=== PATIENT | female | born 1945 | race Caucasian/White ===

== ENCOUNTER 2016-06-08 18:04 | Inpatient (IN) | payer MEDICARE ==
[~2016-06-08] VITALS: Ht 165.1 cm; Wt 68.0 kg
[~2016-06-08 18:04] MED LIST: HYDROCHLOROTH12.5 M1 PO; NEURONTIN 300300 MG PO; PLAVIX75 MG PO; PRINIVIL20 MG PO
[2016-06-08 19:04] LABS: BASOPHILS 0.2 % (0.0-2.0); EOSINOPHILS 0.3 % (0-7); HEMATOCRIT 35.3 % (36.0-48.0); HEMOGLOBIN 12.1 g/dL (12-16); IMMATURE GRANULOCYTES 0.2 % (0-5); LYMPHOCYTES 16.5 % (15-50); MCH 32.6 pg (26.0-34.0); MCHC 34.3 g/dL (31.0-37.0); MCV 95.1 fL (80.0-100.0); MEAN PLATELET VOLUME 10.6 fL (7.4-10.4); MONOCYTES 8.4 % (2-11); NEUTROPHILS 74.4 % (40-80); PLATELET COUNT 221 10x3/uL (130-400); RBC 3.71 10x6/uL (4.00-5.40); RDW 14.1 % (11.5-14.5); WBC 11.1 10x3/uL (4.8-10.8)
--- NOTE | 2016-06-08 19:07 | NUR ---
PATIENT GIVEN GOWN AND ASKED TO CHANGE FROM STREET [facility]. DR. FINK GIVEN INFORMATION THAT I HAD. HE REQUESTS CALL BACK WITH LAB RESULTS AND ANY NEEDS THAT ARE IDENTIFIED IN THE MEAN TIME. REPORTED THIS TO YVETTE.
[2016-06-08 19:41] LABS: ALBUMIN 1.9 g/dL (3.4-5.0); CARBON DIOXIDE 15.2 mmol/L (21.0-32.0); PROTEIN - SERUM 3.3 g/dL (6.4-8.2); THYROID STIMULATING HORMONE 0.51 uIU/mL (0.36-3.74)
[2016-06-08 19:57] LABS: ANION GAP 20.6 mmol/L (8-16); BILIRUBIN - TOTAL 0.21 mg/dL (0.2-1.3); CALCIUM 9.6 mg/dL (8.5-10.1); CREATININE - SERUM 3.1 mg/dL (0.6-1.3); POTASSIUM - SERUM 3.8 mmol/L (3.5-5.1)
--- NOTE | 2016-06-08 21:06 | NUR ---
PT AWAKE, ALERT, ORIENTED, ASKING FOR SOMETHING TO EAT AND DRINK. DENIES ANY ACUTE NEEDS. PT IS A DIRECT ADMIT FROM DR. GALLARDO'S OFFICE. WILL MONITOR CLOSELY.
[2016-06-09] VITALS (7 sets, daily range): BP systolic 90–119; BP diastolic 36–49; Ht 165.1 cm; Wt 68.0 kg
--- NOTE | 2016-06-09 06:42 | NUR ---
PT LYING IN BED, EYES CLOSED, RESPIRATIONS EVEN AND UNLABORED, EASILY ROUSABLE TO VERBAL STIMULI. CONTINUE TO MONITOR CLOSELY.
--- NOTE | 2016-06-09 07:27 | NUR ---
PT SITTING UP IN BED EASY TO ARROUSE DENIES NEEDS WILL CONTINUE TO MONITOR.
--- NOTE | 2016-06-09 07:38 | NUR ---
WAITING ON PHARM TO BRING UP MEDS.
[2016-06-09 08:58] LABS: APPEARANCE CLOUDY (CLEAR); BACTERIA MANY /hpf (NONE SEEN); BILIRUBIN NEGATIVE (NEGATIVE); COLOR YELLOW (YELLOW); EPITHELIAL CELLS 0-5 /hpf (0-5); GLUCOSE NEGATIVE (NEGATIVE); KETONE NEGATIVE (NEGATIVE); LEUKOCYTE ESTERASE 1+ (NEGATIVE); MUCUS <1+ /lpf (NONE SEEN); NITRITE NEGATIVE (NEGATIVE); PROTEIN NEGATIVE (NEGATIVE); RED CELLS - URINE OCC /hpf (0-5); SPECIFIC GRAVITY 1.015 (1.005-1.020); UROBILINOGEN NORMAL (NORMAL)
[2016-06-09 09:38] LABS: ERYTHROCYTE SEDIMENTATION RATE 88 mm/hr (0-30)
[2016-06-09 11:27] LABS: BASOPHILS 0.2 % (0.0-2.0); EOSINOPHILS 0.4 % (0-7); HEMATOCRIT 32.8 % (36.0-48.0); HEMOGLOBIN 10.9 g/dL (12-16); IMMATURE GRANULOCYTES 0.3 % (0-5); LYMPHOCYTES 19.8 % (15-50); MCH 31.4 pg (26.0-34.0); MCHC 33.2 g/dL (31.0-37.0); MCV 94.5 fL (80.0-100.0); MEAN PLATELET VOLUME 10.8 fL (7.4-10.4); MONOCYTES 8.4 % (2-11); NEUTROPHILS 70.9 % (40-80); PLATELET COUNT 232 10x3/uL (130-400); RBC 3.47 10x6/uL (4.00-5.40); RDW 14.1 % (11.5-14.5)
[2016-06-09 11:32] LABS: ANION GAP 18.2 mmol/L (8-16); CALCIUM 9.3 mg/dL (8.5-10.1); CARBON DIOXIDE 15.3 mmol/L (21.0-32.0); CREATININE - SERUM 2.9 mg/dL (0.6-1.3); POTASSIUM - SERUM 3.5 mmol/L (3.5-5.1)
--- NOTE | 2016-06-09 15:47 | NUR ---
PT IS SITTING UP IN BED HAS BEEN COMPLAINING OF SORE THROAT TODAY. WILL ASK JANE WESLEY FOR SOMETHING FOR PT ONCE SHE IS FREE. PT DENIES OTHER NEEDS AT THIS TIME. WILL CONTINUE TO MONITOR.
--- NOTE | 2016-06-09 19:32 | NUR ---
RECEIVED REPORT, RFA-SODIUM BICARB @75, BED IS LOW,SRX2, CALL LIGHT IN REACH
[2016-06-10] VITALS: BP 93/43
--- NOTE | 2016-06-10 00:27 | NUR ---
ENGINEERING FACULTY AT BEDSIDE TO OBTAIN VITALS, CALL LIGHT IN REACH. WILL CONTINUE WITH PLAN OF CARE.
[2016-06-10 04:00] VITALS: BP 96/43
[2016-06-10 06:14] LABS: BASOPHILS 0.1 % (0.0-2.0); EOSINOPHILS 0.3 % (0-7); HEMOGLOBIN 9.6 g/dL (12-16); IMMATURE GRANULOCYTES 0.3 % (0-5); LYMPHOCYTES 23.5 % (15-50); MCH 31.4 pg (26.0-34.0); MCHC 34.3 g/dL (31.0-37.0); MEAN PLATELET VOLUME 10.3 fL (7.4-10.4); MONOCYTES 10.2 % (2-11); NEUTROPHILS 65.6 % (40-80); PLATELET COUNT 215 10x3/uL (130-400); RBC 3.06 10x6/uL (4.00-5.40); RDW 13.6 % (11.5-14.5)
[2016-06-10 06:28] LABS: MCV 91.5 fL (80.0-100.0); WBC 7.3 10x3/uL (4.8-10.8)
[2016-06-10 06:32] LABS: CALCIUM 7.8 mg/dL (8.5-10.1)
[2016-06-10 06:45] LABS: ANION GAP 16.5 mmol/L (8-16); CARBON DIOXIDE 21.5 mmol/L (21.0-32.0)
--- NOTE | 2016-06-10 07:08 | NUR ---
PT SITTING UP IN BED DENIES NEEDS AT THIS TIME WILL CONTINUE TO MONITOR.
[2016-06-10 07:20] LABS: HEPATITIS C ANTIBODY <0.1 (0.0-0.9)
[2016-06-10 08:05] VITALS: BP 82/37
[2016-06-10 11:13] LABS: ANA REFLEX - DIRECT Negative (Negative)
[2016-06-10 12:19] VITALS: BP 94/58
[2016-06-10 15:39] VITALS: BP 105/47
[2016-06-10 18:08] LABS: SPE - A/G RATIO 0.8 (0.7-1.7); SPE - ALBUMIN 2.8 g/dL (2.9-4.4); SPE - ALPHA-1 GLOBULIN 0.4 g/dL (0.0-0.4); SPE - ALPHA-2 GLOBULIN 1.3 g/dL (0.4-1.0); SPE - BETA GLOBULIN 0.8 g/dL (0.7-1.3); SPE - GAMMA GLOBULIN 0.9 g/dL (0.4-1.8); SPE - M-SPIKE 0.3 g/dL (Not Observed); SPE - TOTAL PROTEIN 6.2 g/dL (6.0-8.5)
[2016-06-10 19:09] LABS: UPE RAND - ALBUMIN 22.1 % (()); UPE RAND - ALPHA 1 GLOBULIN 7.5 % (()); UPE RAND - ALPHA 2 GLOBULIN 19.4 % (()); UPE RAND - BETA GLOBULIN 36.4 % (()); UPE RAND - GAMMA GLOBULIN 14.6 % (())
--- NOTE | 2016-06-10 19:55 | NUR ---
RECEIVED REPORT, RFA-SODIUM BICARB @75, O2-2L,CALL LIGHT IN REACH, BED LOW, SRX2, DENIES ANY NEEDS
[2016-06-10 20:00] VITALS: BP 116/51
[2016-06-11] VITALS: BP 118/51; BP 173/77
--- NOTE | 2016-06-11 00:33 | NUR ---
SLEEPING, BED IS LOW, SRX2. BED ALARM IS ON, CALL LIGHT IN REACH
--- NOTE | 2016-06-11 01:12 | NUR ---
PT RESTING SOUNDLY WITHOUT C/O OR DISTRESS NOTED. CALL LIGHT IS WITHIN REACH. NO NEEDS VOICED. WILL MONITOR.
[2016-06-11 06:52] LABS: BASOPHILS 0 % (0.0-2.0); EOSINOPHILS 0 % (0-7); HEMATOCRIT 25.8 % (36.0-48.0); HEMOGLOBIN 8.9 g/dL (12-16); IMMATURE GRANULOCYTES 0.1 % (0-5); MCH 31.4 pg (26.0-34.0); MCHC 34.5 g/dL (31.0-37.0); MCV 91.2 fL (80.0-100.0); MEAN PLATELET VOLUME 10.4 fL (7.4-10.4); MONOCYTES 2.7 % (2-11); NEUTROPHILS 86.2 % (40-80); PLATELET COUNT 239 10x3/uL (130-400); RBC 2.83 10x6/uL (4.00-5.40); RDW 13.5 % (11.5-14.5)
--- NOTE | 2016-06-11 06:52 | NUR ---
RECEIVED REPORT FROM TERMINAL CLERK NURSE, MIKHAIL ESTRADA. PT IN BED AT THIS TIME, REQUESTED A CUP OF ICE WATER, WILL PROVIDED PT WITH ICE WATER. PT DENIES ANY OTHER NEEDS AT THIS TIME. ASSESSMENT COMPLETED AT THIS TIME. NAD NOTED, CALL LIGHT IN REACH, WILL CONTINUE TO MONITOR.
[2016-06-11 07:16] LABS: ANION GAP 13.1 mmol/L (8-16); CALCIUM 8.2 mg/dL (8.5-10.1); CARBON DIOXIDE 27.7 mmol/L (21.0-32.0); CREATININE - SERUM 1.7 mg/dL (0.6-1.3); POTASSIUM - SERUM 2.8 mmol/L (3.5-5.1)
[2016-06-11 07:34] VITALS: BP 122/61
--- NOTE | 2016-06-11 08:15 | NUR ---
AMANDA VACA RENAL PROCESSOR HELPER NOTIFIED OF CRITICAL K OF 2.9.
--- NOTE | 2016-06-11 08:49 | NUR ---
ADMINISTERED MORNING MEDICATIONS, PT IN BED, REQUESTED FOR ME TO CALL FAMILY MEMBER AND TRANSFER CALL TO HER ROOM. PT DENIES ANY NEEDS AT THIS TIME. CALL LIGHT IN REACH, NAD NOTED, WILL CONTINUE TO MONITOR.
[2016-06-11 11:51] LABS: % SATURATION 15 % (15-55); IRON 18 ug/dl (35-150); TOTAL IRON BIND CAPACITY 119 ug/dl (260-445); UNSAT IRON BIND CAPACITY 101 ug/dl (150-375)
[2016-06-11 12:13] VITALS: BP 123/54
[2016-06-11 14:12] LABS: ANION GAP 13.8 mmol/L (8-16); CALCIUM 8.1 mg/dL (8.5-10.1); CARBON DIOXIDE 27.5 mmol/L (21.0-32.0); CREATININE - SERUM 1.8 mg/dL (0.6-1.3)
[2016-06-11 14:17] LABS: POTASSIUM - SERUM 3.3 mmol/L (3.5-5.1)
[2016-06-11 14:56] LABS: HEMOGLOBIN A1C 7.5 % (4.8-6.0)
[2016-06-11 16:19] VITALS: BP 139/56
--- NOTE | 2016-06-11 19:42 | NUR ---
RECEIVED REPORT, PT IS A&O, UP WITH ASSIST, 02-2L, IV-RFA-SL, REFUSING TO WEAR SCD, CALL LIGHT IN REACH, BED IS LOW, SRX2, BED ALARM IS OM
[2016-06-11 20:49] VITALS: BP 126/57
--- NOTE | 2016-06-12 00:13 | NUR ---
PT RESTING WITH EYES CLOSED. RESP EVEN AND REGULAR. SR UP X2, CALL LIGHT WITHIN REACH.
[2016-06-12 00:36] VITALS: BP 136/62
[2016-06-12 04:39] VITALS: BP 136/74
[2016-06-12 06:51] LABS: BASOPHILS 0.1 % (0.0-2.0); EOSINOPHILS 0 % (0-7); HEMATOCRIT 26.1 % (36.0-48.0); HEMOGLOBIN 8.7 g/dL (12-16); IMMATURE GRANULOCYTES 0.9 % (0-5); LYMPHOCYTES 9.1 % (15-50); MCH 31.2 pg (26.0-34.0); MCHC 33.3 g/dL (31.0-37.0); MEAN PLATELET VOLUME 10.2 fL (7.4-10.4); MONOCYTES 6.5 % (2-11); NEUTROPHILS 83.4 % (40-80); PLATELET COUNT 282 10x3/uL (130-400); RBC 2.79 10x6/uL (4.00-5.40); RDW 13.9 % (11.5-14.5)
--- NOTE | 2016-06-12 06:55 | NUR ---
RECEIVED REPORT FROM FOUR SLIDE MACHINE OPERATOR NURSE, MIKHAIL. PT IN BED, REQUESTED A CUP OF ICE WATER. WILL PROVIDED PT WITH A CUP OF ICE WATER. PT DENIES ANY OTHER NEEDS AT THIS TIME. CALL LIGHT IN REACH, NAD NOTED, WILL CONTINUE TO MONITOR.
[2016-06-12 06:59] LABS: MCV 93.5 fL (80.0-100.0)
[2016-06-12 07:03] LABS: ANION GAP 12.3 mmol/L (8-16); CARBON DIOXIDE 27.6 mmol/L (21.0-32.0); CREATININE - SERUM 1.4 mg/dL (0.6-1.3)
[2016-06-12 07:04] LABS: POTASSIUM - SERUM 3.9 mmol/L (3.5-5.1)
[2016-06-12 09:31] VITALS: BP 119/59
--- NOTE | 2016-06-12 09:41 | NUR ---
ADMINISTERED MORNING MEDICATIONS, PT IN BED, DENIES ANY NEEDS AT THIS TIME. CALL LIGHT IN REACH, NAD NOTED, WILL CONTINUE TO MONITOR.
--- NOTE | 2016-06-12 10:14 | NUR ---
PT AMBULATING AROUND THE UNIT WITH PHYSICAL THERAPY, PT DID WELL, NAD NOTED.
--- NOTE | 2016-06-12 11:37 | NUR ---
ADMINISTERED 6 UNIT OF HUMALOG FOR BLOOD SUGAR OF 285, PER SLIDING SCALE. PT IN BED, DENIES ANY NEEDS AT THIS TIME. CALL LIGHT IN REACH, NAD NOTED, WILL CONTINUE TO MONITOR.
[2016-06-12 12:55] VITALS: BP 144/46
--- NOTE | 2016-06-12 16:03 | NUR ---
CALLED PHARMACY AND SPOKE WITH ABDELRAHMAN AND INFORMED HER THAT I NEED THE IRON FOR PT. SHE STATED THAT THEY WOULD BRING IT UP SOON.
[2016-06-12 16:59] VITALS: BP 93/68
--- NOTE | 2016-06-12 17:50 | NUR ---
RIGHT FA IV, LEAKING. IV D/C TIP INTACT. NEW IV STARTED TO LEFT FA, TWO STICKS. PT TOLERATED PROCEDURE WELL, RESTARTED FERRLECIT IVPB. PT DENIES ANY NEEDS AT THIS TIME. CALL LIGHT IN REACH, NAD NOTED, WILL CONTINUE TO MONITOR.
[2016-06-12 21:36] VITALS: BP 152/59
--- NOTE | 2016-06-12 21:53 | NUR ---
PT AWAKE, ALERT, ORIENTED, DENIES ANY NEEDS. PT IS CONCERNED ABOUT HER FSBS BEING ELEVATED. WE DISCUSSED POSSIBLE CAUSES, AND SHE IS HOPEFUL THAT ONCE SHE IS ABLE TO STOP THE STEROIDS, IT WILL BECOME NORMAL AGAIN. PT STATES SHE IS FEELING BETTER, AND HAS TO BE D/C BY TOMORROW SHE HAS TO TAKE HER PARTNER TO HIS CHEMO APPT ON MONDAY MORNING. CONTINUE TO MONITOR CLOSELY.
--- NOTE | 2016-06-13 02:06 | NUR ---
PT LYING IN BED, EYES CLOSED, RESPIRATIONS EVEN AND UNLABORED. CONTINUE TO MONITOR CLOSELY.
[2016-06-13 02:34] VITALS: BP 138/66
[2016-06-13 04:44] VITALS: BP 137/69
[2016-06-13 06:59] LABS: BASOPHILS 0.1 % (0.0-2.0); EOSINOPHILS 0.1 % (0-7); HEMATOCRIT 27.7 % (36.0-48.0); HEMOGLOBIN 9.4 g/dL (12-16); IMMATURE GRANULOCYTES 1.4 % (0-5); LYMPHOCYTES 18.3 % (15-50); MCH 32.3 pg (26.0-34.0); MCHC 33.9 g/dL (31.0-37.0); MCV 95.2 fL (80.0-100.0); MEAN PLATELET VOLUME 9.9 fL (7.4-10.4); MONOCYTES 8.6 % (2-11); NEUTROPHILS 71.5 % (40-80); RBC 2.91 10x6/uL (4.00-5.40); RDW 14.1 % (11.5-14.5); WBC 14.7 10x3/uL (4.8-10.8)
[2016-06-13 07:05] LABS: PLATELET COUNT 363 10x3/uL (130-400)
[2016-06-13 07:12] LABS: ANION GAP 14.9 mmol/L (8-16); CALCIUM 8.9 mg/dL (8.5-10.1); CARBON DIOXIDE 24.5 mmol/L (21.0-32.0); CREATININE - SERUM 1.4 mg/dL (0.6-1.3); POTASSIUM - SERUM 4.4 mmol/L (3.5-5.1)
--- NOTE | 2016-06-13 07:15 | NUR ---
RECIEVED REPORT ON PATIENT, PATIENT IS ALERT AND ORIENTED AT THIS TIME. PATIENT HAS A L FA IV WITH NS INFUSING AT 10 ML/HR AT THIS TIME. PATIENT IS ON ROOM AIR WITH NAD NOTED AT THIS TIME. CHEST RISES AND FALLS EQUALLY, NO SOB NOTED. PATIENT DENIES ANY NEEDS OR COMPLAINTS AT THIS TIME, STATES SHE IS SUPPOSE TO BE GOING HOME TODAY, WILL TALK WITH DR. MACDONALD LOW AND LOCKED. CALLL LIGHT IN REACH. CPOC
[2016-06-13 08:00] VITALS: BP 141/94
[2016-06-13 11:08] VITALS: BP 150/64
[2016-06-13] MEDS ORDERED: MUCINEX600 MG PO (11:13)
[2016-06-13] MEDS ORDERED: MEDROL DOSE PACK4 MG PO (11:13)
[2016-06-13] MEDS ORDERED: OMNICEF300 MG PO (11:14)
--- NOTE | 2016-06-13 13:08 | NUR ---
Patient Name: JACIEL BURT Admission Status: Elective Accout number: [id number] Admission Date: 06-09-2016 : 1945 Admission Diagnosis:ACUTE KIDNEY FAILURE, UNSPECIFIED Attending: THEO Current LOS: 4 Anticipated DC Date: 06-13-2016 Planned Disposition: Home Primary Insurance: MEDICARE A & B Discharge Planning Comments: * Is the patient Alert and Oriented? Yes 0 * How many steps to enter\exit or inside your home? 1 0 * PCP DR. GALLARDO 0 * Pharmacy [facility] 0 * Preadmission Environment Home with Family 0 * ADLs Independent 0 * Equipment None 0 * Other Equipment NO MEDICAL EQUIPMENT PROVIDER PREFERENCE 0 * List name and contact numbers for known caregivers / representatives who currently or will assist patient after discharge: ORLY JIMENES, LIFE PARTNER, 0 * Community resources currently utilized None 0 * Please name any agencies selected above. NONE 0 * Additional services required to return to the preadmission environment? No 0 * Can the patient safely return to the preadmission environment? Yes 0 * Has this patient been hospitalized within the prior 30 days at any hospital? No 0 CM MET WITH PT IN ROOM TO DISCUSS DISCHARGE PLANNING AND NEEDS. PT REPORTS LIVING AT HOME INDEPENDENTLY WITH HER LIFE PARTNER. PT HAS NO MEDICAL EQUIPMENT AND NO OUTSIDE SERVICES ASSISTING IN THE HOME. CM DISCUSSED AVAILABILITY OF HOME HEALTH, REHAB SERVICES AND MEDICAL EQUIPMENT. PT DENIES DISCHARGE NEEDS, REPORTS HER SLIFE PARTNER WILL PICK HER UP FOR DISCHARGE HOME AT ABOUT 2PM TODAY. IMPORTANT MESSAGE FROM MEDICARE PROVIDED AND EXPLAINED. Sausage Canner: Harrison Tolbert
--- NOTE | 2016-06-13 13:33 | NUR ---
RETURNED TO RESUME CARE, PATIENT IS SITTING UP IN BED WAITING ON RIDE TO GET HERE FOR DC. DENIES ANY NEEDS. CPOC
--- NOTE | 2016-06-13 14:06 | NUR ---
Nutrition Education: RN contacted RD regarding DM education. Provided pt with written DM information and reviewed DM diet. Pt reported that her appetite has been very decreased and she has been under stress lately. RD encouraged pt to follow ADA diet guidelines. RD name and phone number provided to pt. Pt encouraged to contact RD with any questions/concerns. Thank you for the consult. RD following.
--- NOTE | 2016-06-13 14:10 | NUR ---
PATIENT IV DC WITH CATH TIP INTACT. PATIENT GIVEN DC INSTRUCTIONS. PATIENT DENIES ANY QUESTIONS. PRESCRIPTIONS GIVEN. RIDE HERE. PATIENT READY FOR DC.
[2016-06-14 12:11] LABS: ANTI-GLOMERULAR BASMENT MEMBRN 3 units (0-20)
[2016-06-14 16:11] LABS: ANCA - ANTIMYELOPEROXIDASE <9.0 U/mL (0.0-9.0); ANCA - ANTIPROTEINASE 3 <3.5 U/mL (0.0-3.5); ANCA - ATYPICAL <1:20 titer (Neg:<1:20); ANCA - CYTOPLASMIC <1:20 titer (Neg:<1:20); ANCA - PERINUCLEAR <1:20 titer (Neg:<1:20)
[2016-06-15 14:21] LABS: FOLATE (FOLIC ACID) - SERUM 11.7 ng/mL (>3.0)
--- NOTE | 2016-08-15 12:39 | DS ---
PATIENT:JACIEL BURT :43 MEDICAL RECORD: [id number] DISCHARGE SUMMARY ADMISSION DATE: 06/09/16 DISCHARGE DATE: 06/13/16 DATE OF ADMISSION: 06/08/2016 DATE OF DISCHARGE: 06/13/2016 DISCHARGE DIAGNOSES: 1. Acute kidney injury on top of chronic kidney disease. 2. Coronary artery disease. 3. Hypertension. 4. Arthritis. 5. Severe hypoalbuminemia. 6. Metabolic acidosis. CONSULTS: Corky Btaista MD HOSPITAL COURSE: Full H&P is listed elsewhere on the chart for this 71-year-old female patient, who was admitted with olbqj-jr-suntxhr kidney injury and metabolic acidosis. The patient was noted to have UTI and it did grow out E. coli. The patient was on Rocephin. The patient was quite acidotic and had renal insufficiency. Nephrology was on board, IV fluids with D5 and sodium bicarbonate for the acidosis. This did correct. The patient did require some adjustments in sliding scale due to some hyperglycemia from the IV fluids and steroids. The patient's SRI inhibitor was held. It was thought that the patient did have some dehydration. There was a contributing factor to the acute renal failure along with SRI inhibitor. The patient was advised to hold SRI inhibitor as well as stop all NSAIDS. The patient responded well to the medical therapy along with the antibiotic care and antibiotics were deescalated. The patient was noted not to have any proteinuria on workup, even though the albumin was 1.9. The patient required some correction of potassium during hospitalization. But CASI did resolve. Creatinine did return to baseline at 1.4-1.6. The patient ambulated in the ewing. Nephrology signed off. The patient was thought to be stable for discharge to home to follow up in the outpatient setting. See med rec. TRANSINT:[id number] Voice Confirmation ID: [id number] DOCUMENT ID: [id number] Dictated By: AGUEDA LUZ I have interviewed/examined the above patient and agree with these documented findings. SANGEETA ROCHA MD at 0844 at 1238 CC: [id number] DICTATION DATE: 08/10/16 0836 CHEESEMAKER HELPER: 08/10/16 2343 DIS IN 06/13/16 [facility] [address] [place] [address]
== END 2016-06-13 14:38 | disposition home or self-care (01) | DRG 683 ==
LOC: OBSVTIME 18:04 → D.M2 18:04
PROVIDERS: Family Medicine; Internal Medicine Nephrology; ADMIT Family Medicine
DX: N17.9 Acute kidney failure, unspecified (principal); F17.203 Nicotine dependence unspecified, with withdrawal; I12.9 Hypertensive chronic kidney disease with stage 1 through stage 4 chronic kidney disease, or unspecified chronic kidney disease; N18.9 Chronic kidney disease, unspecified; G62.9 Polyneuropathy, unspecified; E87.6 Hypokalemia; I25.10 Atherosclerotic heart disease of native coronary artery without angina pectoris; E88.09 Other disorders of plasma-protein metabolism, not elsewhere classified; R63.0 Anorexia; Z68.25 Body mass index [BMI] 25.0-25.9, adult; N30.90 Cystitis, unspecified without hematuria; E11.22 Type 2 diabetes mellitus with diabetic chronic kidney disease; E11.65 Type 2 diabetes mellitus with hyperglycemia; B96.20 Unspecified Escherichia coli [E. coli] as the cause of diseases classified elsewhere; E86.0 Dehydration; D64.9 Anemia, unspecified; Z95.5 Presence of coronary angioplasty implant and graft; Z86.73 Personal history of transient ischemic attack (TIA), and cerebral infarction without residual deficits

== ENCOUNTER → 2016-08-19 13:47 | Outpatient (CLI) | payer MEDICARE ==
[2016-06-09 12:58] VITALS: BMI 24.9
[~2016-08-19 13:47] MED LIST changes: +MEDROL DOSE PACK4 MG PO; +MUCINEX600 MG PO; +OMNICEF300 MG PO
== END | disposition home or self-care (01) ==
LOC: D.MRI 13:47
DX: G62.9 Polyneuropathy, unspecified (principal)

== ENCOUNTER → 2017-06-21 09:59 | Outpatient (CLI) | payer MEDICARE ==
[2016-06-09 12:58] VITALS: BMI 24.9
--- NOTE | ~2017-06-21 | EC ---
PATIENT:JACIEL BURT DATE OF SERVICE: 06/21/17 SEX: F MEDICAL RECORD: [id number] DATE OF : [birth year] LOCATION:[facility] AGE OF PATIENT: 72 ADMISSION DATE: 06/21/17 REFERRING PHYSICIAN: INTERPRETING PHYSICIAN: KATHYA CASTELLANOS MD ECHOCARDIOGRAM REPORT ECHO CHARGES 4 ECHO COMPLETE CLINICAL DIAGNOSIS: UNCONTROLLED HTN ECHOCARDIOGRAPHIC MEASUREMENTS (adult normal given) AC root (d.<3.7cm) 2.9 cm LV Septum d (<1.2 cm> 1.3 cm Valve Excursion 1.8 cm LV Septum (systole) 1.8 cm Left Atria (s.<4.0cm> 3.6 cm LVPW d(<1.2cm) 1.2 cm RV (d.<2.3cm) 2.5 cm LVPW (sytole) 1.9 cm LV diastole(<5.6CM) 4.5 cm MV E-F(>70mm/sec) cm LV systole 2.6 cm LVOT Diameter 1.9 cm MV exc.(>10mm) cm Est.ejection fraction (50-75%) % Pericardial Effusion N DOPPLER: LVIT cm/sec A 76.0 cm/sec E 101 cm/sec LA cm/sec RVSP 24.0 mmHg LVOT 75.0 cm/sec AOP1/2T m/s Asc. Ao 122 cm/sec RVOT 52.0 cm/sec RA cm/sec PA 76.0 cm/sec AV Gradient Peak 6.0 mmHg AV Mean 3.3 mmHg AV Area 1.3 cm MV Gradient Peak 4.7 mmHg MV Mean 1.8 mmHg MV Area cm COMMENTS: Health And Wellness Advisor: Glo MCMANUSOE Early Years Teacher: 1 Dr. Castellanos TAPE# PACS DATE OF SERVICE: 06/21/2017 Echocardiogram FINDINGS: 1. Left ventricular chamber size is within normal limits. Left ventricular systolic function is normal. Overall ejection fraction estimated at 55%. 2. Left atrium, right atrium, and right ventricular chamber sizes are within normal limits. 3. Valvular structures have normal structure and motion. ECHOCARDIOGRAM REPORT [id number] JACIEL BURT 4. Doppler interrogation reveals mild mitral regurgitation, mild tricuspid regurgitation, no other valvular insufficiency or stenosis. 5. No evidence of pericardial effusion or left ventricular thrombus. TRANSINT:[id number] Voice Confirmation ID: [id number] DOCUMENT ID: [id number] KATHYA CASTELLANOS MD at 1323 CC: [id number] DICTATION DATE: 06/22/1734 DIRECTOR OF TEENAGE ACTIVITIES: 06/22/17 1213 DEP CLI 06/21/17 [place] [id number] [place] [id number]
== END | disposition home or self-care (01) ==
LOC: D.ECHO 09:59
DX: I10 Essential (primary) hypertension (principal)

== ENCOUNTER → 2017-11-13 08:27 | Outpatient (CLI) | payer MEDICARE ==
[2016-06-09 12:58] VITALS: BMI 24.9
== END | disposition home or self-care (01) ==
LOC: D.CT 08:27
DX: G43.909 Migraine, unspecified, not intractable, without status migrainosus (principal)

== ENCOUNTER 2020-10-07 09:39 | Observation (INO) | payer MEDICARE ==
[2020-10-07] VITALS (11 sets, daily range): BP systolic 136–166; BP diastolic 57–70; Ht 165.1 cm; Wt 63.6 kg
[~2020-10-07] VITALS: Ht 165.1 cm; Wt 63.6 kg
[2020-10-07 10:11] LABS: APTT 26.1 SECONDS (22.8-39.4); CALC OSMOLALITY 289 mosm/kg (275-300); CALCIUM 9.1 mg/dL (8.5-10.1); CARBON DIOXIDE 22.6 mmol/L (21.0-32.0); CHLORIDE - SERUM 103 mmol/L (98-107); CREATININE - SERUM 1.5 mg/dL (0.6-1.3); INR 1.16 (0.85-1.17); POTASSIUM - SERUM 3.7 mmol/L (3.5-5.1); PROTIME 13.7 SECONDS (11.6-15.0); SODIUM 137 mmol/L (136-145); UREA NITROGEN 20 mg/dL (7-18); eGFR NON AFRICAN AMERICAN 36 mL/min (90-120)
[2020-10-07 10:12] LABS: GLUCOSE 338 mg/dL (74-106)
[2020-10-07 10:14] LABS: BASOPHILS 0.3 % (0-2); EOSINOPHILS 3.3 % (0-7); HEMATOCRIT 35.5 % (36.0-48.0); HEMOGLOBIN 12.1 g/dL (12-16); IMMATURE GRANULOCYTES 0.2 % (0-5); LYMPHOCYTE ABS# 2.26 10x3/uL (1.18-3.74); LYMPHOCYTES 24.9 % (15-50); MCH 32.5 pg (26.0-34.0); MCHC 34.1 g/dL (31.0-37.0); MCV 95.4 fL (80.0-100.0); MEAN PLATELET VOLUME 10.1 fL (7.4-10.4); MONOCYTES 9.4 % (2-11); NEUTROPHILS 61.9 % (40-80); PLATELET COUNT 287 10x3/uL (130-400); RBC 3.72 10x6/uL (4.00-5.40); RDW 13.7 % (11.5-14.5); WBC 9.1 10x3/uL (4.8-10.8)
[2020-10-07 10:28] LABS: ALBUMIN 3.1 g/dL (3.4-5.0); ALKALINE PHOSPHATASE 120 U/L (30-120); ALT (SGPT) 48 U/L (10-68); BILIRUBIN - TOTAL 0.38 mg/dL (0.2-1.3); CKMB 0.4 U/L (0.0-3.6); CREATINE KINASE 42 UL (21-215); MAGNESIUM - SERUM 1.8 mg/dL (1.8-2.4); PROTEIN - SERUM 6.8 g/dL (6.4-8.2); THYROID STIMULATING HORMONE 1.13 uIU/mL (0.36-3.74)
[2020-10-07 10:29] LABS: TROPONIN-I < 0.017 ng/mL (0.000-0.060)
--- NOTE | 2020-10-07 16:10 | NUR ---
ARRIVES TO UNIT PER W/C, CONT TO MONITOR FOR WEAKNESS
[2020-10-07] MEDS ORDERED: AMBIEN CR 6.26.25 MG (18:17)
[2020-10-07] MEDS ORDERED: VERELAN180 MG (18:18)
[2020-10-07] MEDS ORDERED: GLIMEPIRIDE1 MG PO (18:18)
[2020-10-07] MEDS ORDERED: ZYLOPRIM100 MG PO (18:19)
[2020-10-07] MEDS ORDERED: CLONIDINE HCL0.2 MG PO (18:20)
[2020-10-07] MEDS ORDERED: TOPROL XL100 MG PO (18:21)
[2020-10-08 04:00] VITALS: BP 193/88
--- NOTE | 2020-10-08 04:37 | NUR ---
PT RESTING COMFORTABLY IN BED. NO COMPLAINTS OF PAIN NOR DISTRESS NOTED AT THIS TIME. ALERT AND ORIENTED. ABLE TO MAKE WANTS AND NEEDS KNOWN CLEARLY. PT STATES SHE IS FEELING NO WEAKNESS AT THIS TIME. BED IN LOWEST POSITION WITH CALL LIGHT IN REACH.
[2020-10-08 07:32] LABS: ALBUMIN 3.1 g/dL (3.4-5.0); ANION GAP 13.9 mmol/L (8-16); BILIRUBIN - TOTAL 0.45 mg/dL (0.2-1.3); CARBON DIOXIDE 23.7 mmol/L (21.0-32.0); MAGNESIUM - SERUM 1.8 mg/dL (1.8-2.4); PHOSPHOROUS 3.4 mg/dL (2.5-4.9); POTASSIUM - SERUM 3.6 mmol/L (3.5-5.1)
--- NOTE | 2020-10-08 07:59 | EC ---
PATIENT:JACIEL BURT DATE OF SERVICE: 10/07/20 SEX: F MEDICAL RECORD: [id number] DATE OF : 43 LOCATION:[facility] AGE OF PATIENT: 75 ADMISSION DATE: 10/07/20 REFERRING PHYSICIAN: INTERPRETING PHYSICIAN: CIRILO HARRIS MD ECHOCARDIOGRAM REPORT ECHO CHARGES 4 ECHO COMPLETE Date: 10/07/20 CLINICAL DIAGNOSIS: CVA VS TIA ECHOCARDIOGRAPHIC MEASUREMENTS (adult normal given) AC root (d.<3.7cm) 2.9 cm LV Septum d (<1.2 cm> 0.9 cm Valve Excursion 1.6 cm LV Septum (systole) 1.1 cm Left Atria (s.<4.0cm> 3.7 cm LVPW d(<1.2cm) 0.8 cm RV (d.<2.3cm) 2.4 cm LVPW (sytole) 1.0 cm LV diastole(<5.6CM) 5.2 cm MV E-F(>70mm/sec) cm LV systole 4.4 cm LVOT Diameter 1.8 cm MV exc.(>10mm) 1.1 cm Est.ejection fraction (50-75%) % DOPPLER: LVIT cm/sec A 101 cm/sec E 84 cm/sec LA cm/sec RVSP 25 mmHg LVOT 78 cm/sec AOP1/2T m/s Asc. Ao 96 cm/sec RVOT 51 cm/sec RA cm/sec PA 71 cm/sec AV Gradient Peak 3.7 mmHg AV Mean 2.4 mmHg AV Area 1.7 cm MV Gradient Peak 5.3 mmHg MV Mean 2.9 mmHg MV Area cm COMMENTS: Branch Services Manager: Ana MELTON Manager Line: 3 Dr. Paulino TAPE# Pericardial Effusion N DATE OF SERVICE: Adequate 2D, color flow imaging, spectral Doppler, and M-Mode. FINDINGS: No LVH. LV internal dimensions are normal. Wall motion is normal. EF is greater than or equal to 55%. Aortic valve is tricuspid with good valve excursion. Left atrium is normal. Mitral valve shows no prolapse. Trace MR. Right side is grossly normal. Trace TR. TRANSINT:[id number] Voice Confirmation ID: [id number] DOCUMENT ID: [id number] ECHOCARDIOGRAM REPORT [id number] JACIEL BURT CIRILO HARRIS MD at 0759 CC: [id number] DICTATION DATE: 10/07/20 165 SOIL FERTILITY SPECIALIST: 10/07/20 1842 ADM IN [place] [id number] [place] [id number]
[2020-10-08 08:03] LABS: BASOPHILS 0.3 % (0-2); EOSINOPHILS 2.5 % (0-7); HEMATOCRIT 36.7 % (36.0-48.0); HEMOGLOBIN 12.7 g/dL (12-16); IMMATURE GRANULOCYTES 0.2 % (0-5); LYMPHOCYTE ABS# 2.55 10x3/uL (1.18-3.74); LYMPHOCYTES 28.1 % (15-50); MCH 32.8 pg (26.0-34.0); MCHC 34.6 g/dL (31.0-37.0); MCV 94.8 fL (80.0-100.0); MEAN PLATELET VOLUME 10.4 fL (7.4-10.4); MONOCYTES 9.3 % (2-11); NEUTROPHIL ABS# 5.39 10x3/uL (1.56-6.13); NEUTROPHILS 59.6 % (40-80); PLATELET COUNT 290 10x3/uL (130-400); RBC 3.87 10x6/uL (4.00-5.40); RDW 13.8 % (11.5-14.5); WBC 9.1 10x3/uL (4.8-10.8)
[2020-10-08 08:27] VITALS: BP 160/78
[2020-10-08 12:43] VITALS: BP 156/81
[2020-10-08] MEDS ORDERED: NICODERM CQ1 EAC3 TOPICAL (15:39)
[2020-10-08] MEDS ORDERED: ASPIRIN81 MG PO (15:39)
== END 2020-10-08 17:49 | disposition home or self-care (01) ==
LOC: D.ER 09:39 → D.MS 13:07 → OBSVTIME 16:38 → D.MS 10-08 17:49
PROVIDERS: Family Medicine; ADMIT Emergency Medicine; ATTEND Emergency Medicine
DX: G45.9 Transient cerebral ischemic attack, unspecified (principal); R53.1 Weakness; E11.65 Type 2 diabetes mellitus with hyperglycemia; F17.200 Nicotine dependence, unspecified, uncomplicated; Z86.73 Personal history of transient ischemic attack (TIA), and cerebral infarction without residual deficits; I10 Essential (primary) hypertension; E11.40 Type 2 diabetes mellitus with diabetic neuropathy, unspecified; F32.9 Major depressive disorder, single episode, unspecified; F41.8 Other specified anxiety disorders; J44.9 Chronic obstructive pulmonary disease, unspecified; Z79.4 Long term (current) use of insulin; I25.10 Atherosclerotic heart disease of native coronary artery without angina pectoris